=== PATIENT | female | born 1990 | race Two or more races ===

== ENCOUNTER 2017-04-27 07:03 | Day surgery (SDC) | payer BC ==
[2017-04-11 12:17] VITALS: BMI 33.6
[2017-04-27] MEDS ORDERED: MIDAZOLAM HCL 2 MG/2 ML SINGLE DOSE VIAL ONE ×3 (08:58→11:29)
[2017-04-27] MEDS ORDERED: oxyCODONE HCL 5 MG TABLET PO PRN (09:09)
[2017-04-27] MEDS ORDERED: PROMETHAZINE HCL 25 MG/1 ML VIAL IVPUSH PRN (09:09)
[2017-04-27] MEDS ORDERED: LACTATED RINGERS SOLUTION 1,000 ML IV SCH (09:15)
[2017-04-27] MEDS ORDERED: PROPOFOL 20 ML ONE (09:50)
[2017-04-27] MEDS ORDERED: LIDOCAINE HCL/PF 2% SDV 5ML VIAL ONE (09:51)
[2017-04-27] MEDS ORDERED: CLINDAMYCIN PHOSPHATE 600 MG/4 ML VIAL ONE ×2 (10:00→13:24)
[2017-04-27] MEDS ORDERED: CLINDAMYCIN PHOSPHATE 900 MG/6 ML VIAL IVPB ONE (10:00)
[2017-04-27] MEDS ORDERED: DEXAMETHASONE SOD PHOSPHATE 4 MG/1 ML VIAL ONE (10:34)
[2017-04-27] MEDS ORDERED: CEFAZOLIN 1 GM in DEXTROSE 5%-WATER - 50 ML IVPB ONE (11:45)
--- NOTE | 2017-04-27 11:52 | HP ---
Satellite H - Chief Complaint Chief Complaint: left knee pain/instability - Past Medical History Allergies/Adverse Reactions: Allergies Allergy/AdvReac Type Severity Reaction Status Date / Time Penicillins Allergy Rash Verified 04/11/17 12:09 Sulfa (Sulfonamide Allergy Rash Verified 04/11/17 12:09 Antibiotics) ...LMP: 03/20/17 - Current Medications Current Medications: Home Medications Medication Instructions Recorded Ibuprofen 800 mg Q8H PRN 04/11/17 Oxycodone HCl/Acetaminophen 1 - 2 tab PO Q6H #50 tab MDD 8 04/27/17 [Percocet 5-325 mg Tablet -] Satellite Physical Exam - Physical Examination Vital Signs: Vital Signs Period Temp Pulse Resp BP Sys/Latham Pulse Ox Last 24 Hr 98.6 F-98.6 F 96-96 18-18 118-118/78-78 100 General Appearance: Well Nourished, Well Developed, Alert & Oriented x3 ENT: Clear Lung: Normal air movement Heart: Regular rate & rhythm Extremities: Other (left knee- + swelling, + ttp, decr rom, + ant draw, + kenia, + pivot, nvi MRI + acl rupture) Neurological: Intact, Alert, Oriented Satellite Impression/Plan - Impression/Plan Impression: left knee acl rupture Operative Procedure: left knee ACl reconstruction using BTB autograft Date to be Performed: 04/27/17
--- NOTE | 2017-04-27 11:53 | OP ---
Operative Note - Note: Operative Date: 04/27/17 ([facility]) Pre-Operative Diagnosis: left knee acl rupture Operation: left knee arthroscopy with ACL reconstruction using BTB autograft Post-Operative Diagnosis: Same as Pre-op Surgeon: Puneet Morrell Winemaker: Maksim Bunch Anesthesiologist/LANDSCAPING SPECIALIST: Bruce Clarke Anesthesia: General, Local Specimens Removed: shavings Estimated Blood Loss (mls): 5 (tourniquet) Operative Report Dictated: Yes
[2017-04-27] MEDS ORDERED: CLINDAMYCIN 600MG PREMIX IVPB 50 ML IVPB ONE (12:11)
[2017-04-27] MEDS ORDERED: oxyCODONE HCL 5 MG TABLET ONE (13:51)
[2017-04-27] MEDS ORDERED: oxyCODONE HCL 5 MG TABLET PO ONE (13:55)
[2017-04-27 14:01] VITALS: TEMP 97.7
[2017-04-27] MEDS ORDERED: CLINDAMYCIN PHOSPHATE 600 MG/4 ML VIAL IVPB ONE (15:20)
[2017-04-27 16:16] VITALS: BP 110/60; PULSE 70
--- NOTE | 2017-04-28 11:13 | SPEC ---
DATE OF OPERATION: 04/27/2017 PREOPERATIVE DIAGNOSIS: Left anterior cruciate ligament tear. POSTOPERATIVE DIAGNOSIS: Left anterior cruciate ligament tear. PROCEDURE: Left anterior cruciate ligament reconstruction with bone patellar bone autograft harvesting. SURGICAL ATTENDING: Puneet Morrell M.D. PUBLIC HEALTH ENGINEER: EVELIA Frazier ANESTHESIA: LMA and regional. CLOSURE: Bone patellar bone autograft with Arthrex metallic interference screw fixation, 0 Vicryl for tendon, 2-0 for paratenon subcutaneous, 3-0 Monocryl subcuticular, skin glue for skin. ESTIMATED BLOOD LOSS: Negligible. TOURNIQUET TIME: One hour. COMPLICATIONS: None. CONDITION: To recovery in stable condition. DESCRIPTION OF PROCEDURE: The patient was taken to the Operating Room on April 27, 2017. Adductor canal block as well as general anesthesia was administered by the anesthesiologist. IV Kefzol was given prophylactically prior to the case. A well-padded pneumatic tourniquet was placed on the left proximal thigh. The left lower extremity was prepped and draped in the usual sterile fashion. The leg was exsanguinated with an Esmarch bandage and the tourniquet was inflated to 275 mmHg. A 6.0 cm longitudinal incision centered over the patellar tendon was incised down to the level of the patellar tendon through the paratenon. Flaps were made below the paratenon from the mid-patella to tibial tubercle, and medially and laterally to expose the entire patellar tendon. The central 10 mm were harvested using a 10 mm double blade, 10 x 25 mm bone plugs were harvested at its ends using micro-oscillating saw. Two drill holes were placed through each plug, and through these drill holes No 2 Fiberwire traction sutures were applied. The graft was measured and contoured to fit snugly through a 10 mm sizer, and was placed on the back table on a sponge until needed later in the procedure. A rent in the patellar tendon was closed using No. 1 Vicryl interrupted suture. An L was made in the periosteum 1-cm medial to the tibial tubercle for later tibial tunnel placement. Next, the arthroscopic part of the procedure was performed. A superolateral portal was made using a No. 15 blade followed by a blunt trocar. The medial and lateral infrapatellars were made through the previously-made incision using a No. 15 blade followed by a blunt trocar. The scope was placed in the lateral infrapatellar portal and up into the suprapatellar pouch. The pouch was visualized to be clean. The medial and lateral gutters were visualized to be clean. The undersurface of the patella and trochlea were visualized to be intact. With valgus stress on the knee the medial compartment was entered. The medial meniscus was visualized and probed, and found to be intact. The medial femoral condyle was run and found to be intact, as was the medial tibial plateau. In the figure-four position the lateral compartment was entered. The lateral meniscus was visualized and probed, and found to be intact. The lateral femoral condyle was run and found to be intact, as was the lateral tibial plateau. At 90 degrees the ACL was visualized to be completely torn with a large stump anteriorly. This was debrided using the shaver. Next, a notchplasty was performed using a shelia and ArthroCare device until the appropriate width and height of the notch was obtained, and the insertion site of the femoral tunnel was clearly seen from anteriorly. All particulate debris was removed using the shaver. Using a 10 mm retro-drill, a tunnel was drilled from the anterior, medial and proximal tibia into the knee just anterior to the PCL. All bone fragments and soft tissue around the tunnel were debrided using the shaver. With the knee flexed greater than 120 degrees, a Beath pin was placed through the AM portal, and drilled from the posterior aspect of the notch until it exiting the anterolateral distal thigh. This was over-reamed with a 10 mm flat low-profile reamer to the appropriate depth. All bone fragments were debrided using the shaver. Good posterior wall was clearly seen, but also insuring that the graft was posterior enough. Through the Beath pin was placed a shuttle suture, which was pulled until it exited the anterolateral distal thigh. The shuttle suture was then pulled down the tibial tunnel. The shuttle suture was used to shuttle the traction sutures and the graft from the anterior, medial and proximal tibia until it exited the anterolateral distal thigh. The graft was pulled up until it was snugly buried in the femoral tunnel. An Arthrex interference screw was placed between the femoral bone plug and the femoral tunnel, achieving excellent fixation. The knee was taken through a range of motion and found that the graft crossed nicely over the PCL and did not impinge on the notch from full extension to full flexion. With 20 degrees of flexion and posterior drawer being applied, an interference screw was placed between the tibial bone plug and the tibial tunnel of appropriate length, achieving excellent fixation. The knee was again taken through a range of motion and found to go from full extension and full flexion with excellent tension on the graft as it crossed the PCL, negative Damir, negative pivot shift, negative anterior and posterior drawer, and no impingement on the notch. Traction sutures were removed. The donor site on the patella was filled with StimuBlast bone putty. The paratenon was closed using 2-0 Vicryl running suture, 2-0 for subcutaneous, and 3-0 Monocryl subcuticular with skin glue to the skin. Sterile pressure dressing followed by a knee immobilizer was applied. Tourniquet was deflated with a total tourniquet of time of approximately one hour. No complications. Jake [id number]
--- NOTE | 2017-04-28 13:53 | PATH ---
Surgical Pathology Report Patient Name: WESLEY SHAW [facility]. Rec. #: [id number] /Age/Gender: 1990 (Age: 26) / F Account: [id number] Location: [facility] SURGICAL Taken: 04/27/2017 Received: 04/27/2017 Reported: 04/28/2017 Physicians: Puneet Morrell M.D. Specimen(s) Received LEFT KNEE SHAVINGS Clinical History Left knee ACL tear Final Diagnosis KNEE, LEFT, ARTHROSCOPIC SHAVING: FIBROCARTILAGE WITH MYXOID DEGENERATIVE CHANGES, ALONG WITH PORTIONS OF SYNOVIUM, BONE AND HYALINE CARTILAGE. Electronically Signed Ryan Kim M.D. Gross Description Received in formalin, labeled "left knee shavings," is a 5.0 x 3.6 x 0.4 cm. aggregate of santos-yellow soft tissue fragments. A technical support representative portion is submitted in one cassette. /04/27/201704/27/2017
== END 2017-04-27 16:34 | disposition home or self-care (01) ==
LOC: JASU-SURG 07:03
PROVIDERS: ATTEND Orthopaedic Surgery
PROC: 0MUP47Z Supplement Left Knee Bursa and Ligament with Autologous Tissue Substitute, Percutaneous Endoscopic Approach (ICD-10-PCS; principal; 2017-04-27 09:00)
DX: S83.512A Sprain of anterior cruciate ligament of left knee, initial encounter (principal); X58.XXXA Exposure to other specified factors, initial encounter; Y93.9 Activity, unspecified; Y92.9 Unspecified place or not applicable
CPT/HCPCS: 84703; 88304-TC; 94760